=== PATIENT | male | born 1990 | race Caucasian/White ===

== ENCOUNTER → 2017-02-01 | Outpatient (CLI) | payer OTHER ==
--- NOTE | 2017-02-01 09:29 | RAD ---
Left knee, 3 views, 02/01/2017: History: Fall, injury, pain No fracture or dislocation is identified. No significant joint effusion is detected. IMPRESSION: No acute left knee abnormality is identified.
== END | disposition home or self-care (01) ==
LOC: RAD 08:42
DX: S80.02XA Contusion of left knee, initial encounter (principal); W19.XXXA Unspecified fall, initial encounter; Y93.89 Activity, other specified; Y92.89 Other specified places as the place of occurrence of the external cause; Y99.8 Other external cause status
CPT/HCPCS: 73562